=== PATIENT | female | born 1990 ===

== ENCOUNTER 2021-03-09 11:41 | Emergency (ER) | payer MEDICAID, OTHER ==
[~2021-03-09] VITALS: Ht 162.6 cm; Wt 79.4 kg
[2021-03-09] MEDS ORDERED: ONDANSETRON HCL 4 MG/2 ML VIAL IV ONE (14:45)
[2021-03-09] MEDS ORDERED: HYDROmorphone HCL 2 MG/ML VL IV ONE (14:45)
[2021-03-09 15:41] VITALS: BP 109/67
[2021-03-09] MEDS ORDERED: IBU600T PO (16:11)
== END 2021-03-09 16:34 | disposition home or self-care (01) ==
LOC: ER 11:41 → EDBD 11:41 → ER 16:34
DX: S82.892A Other fracture of left lower leg, initial encounter for closed fracture (principal); X50.1XXA Overexertion from prolonged static or awkward postures, initial encounter; Y93.89 Activity, other specified; Y92.89 Other specified places as the place of occurrence of the external cause; Y99.8 Other external cause status
CPT/HCPCS: 29515; 73610; 96374; 96375; 99284; J1170; J2405